=== PATIENT | female | born 1975 | race Caucasian/White ===

== ENCOUNTER 2025-02-12 09:33 | Emergency (ER) | payer BC, MEDICAID ==
[~2025-02-12] VITALS: Ht 157.5 cm; Wt 86.0 kg
[2025-02-12 09:52] VITALS: BP 150/88; PULSE 86; RESP 16; TEMP 97.5; O2SAT 99
[2025-02-12] MEDS ORDERED: CIPR10DR RIGHT EAR (09:57)
--- NOTE | 2025-02-12 10:00 | Physician Documentation ---
History of Present Illness ~ Chief Complaint: Ear Pain Stated Complaint: EAR INFECTION Time Seen by MD: 09:54 OK to notify your PCP?: Yes Primary Medical Doctor: renetta Source: patient Mode of Arrival: POV Exam Limitations: no limitations HPI RIGHT EAR PAIN AND WHITE/YELLOW DISCHARGE FOR THE PAST 10 DAYS. SHE HAS NOT TRIED ANYTHING AT HOME YET. DENIES ANY SORE THROAT, RUNNY NOSE OR FEVERS. NO RECENT SWIMMING. Medication Reconciliation Allergies: Coded Allergies: No Known Allergies (Unverified , 02/12/25) Past Medical History Past Surgical History: cholecystectomy, hysterectomy Other Past Family History: NONE Alcohol Use: Occasionally Drug Use: none Review of Systems All Other Systems at this time: Reviewed and Negative Physical Exam Vital Signs: RN Vital Signs have been reviewed: Yes, Temperature: 97.5, Source: Temporal, Heart Rate: 86, Respiratory Rate: 16, BP: 150/88, Pulse Oximetry: 99, Weight: 86.000 Oxygen Flow Rate: 0 Pulse Oximetry Reflects: adequate oxygenation Physical Exam General: Alert, no distress. HEENT: No injection, moist mucous membranes. Left ear normal. Right ear external canal has copious white/yellow discharge, unable to see tympanic membrane. Neck: Full range of motion. Respiratory: No respiratory distress, equal chest rise and fall. Chest: No accessory muscle use. Extremities: Normal range of motion, no deformity. Neurologic: Oriented x4. Psychiatric: Normal mood and affect. Skin: Normal color, warm and dry. Progress Results/Orders Results/Orders Vital Signs 02/12/25 09:52 Temp 97.5 Pulse 86 Resp 16 B/P (MAP) 150/88 Pulse Ox 99 O2 Flow Rate 0 Medical Decision Making Additional information obtaine: old records Findings HAS COPIOUS AMOUNTS OF WHITE YELLOW DISCHARGE IN RIGHT EXTERNAL EAR CANAL. IT IS DIFFICULT TO FULLY EXAMINE THE TYMPANIC MEMBRANE ON THIS SIDE. I HAVE GIVEN HER CIPROFLOXACIN HC DROPS TO PLACE IN THIS EAR, SENT TO THE PHARMACY. Ear Diff. Dx: Considerations: Include: Otitis media, Perforation, Tympanic Membrane Injury Eye Diff. Dx: Considerations: Include: Other Nose Diff. Dx: Considerations: Include: Other Tooth Diff. Dx: Considerations: Include: Other Throat Diff Dx: Considerations: Include: Other Departure Disposition: 01 HOME / SELF CARE / HOMELESS Impression: Primary Impression: Otitis externa Condition: Stable Discharge Instructions: Otitis Externa, [id number] Additional Instructions: You can use Tylenol and/or ibuprofen for pain relief at home. Return back here for any new or worsening symptoms. Follow up with her primary care provider in the next week. Referrals: NO PRIMARY CARE PROVIDER (PCP) Prescriptions Ciprofloxacin Hcl/Hc Otic Susp* (Cipro Hc Otic Susp*) 10 Ml Bottle 3 DROP RIGHT EAR Q12H for 7 Days, #10 ML Prov: ANTONIETTA DASH 02/12/25 Education Educated: Patient Educated regarding: diagnosis, treatment, prognosis, need for follow up Additional Comment Medical Screen Exam This patient recieved a medical screening examination. After reviewing the individual's medical complaints with presenting symptoms and performing an appropriate physical examination, it was determined that no immediate life- threatening emergency medical condition is present. This individual is also not a women having contractions. Signature Scribe Signature: . Attestation: Scribed for Emergency,Department by Antonietta Weir NP . 02/12/25 09:55 Parts of this note were created using [employer] voice recognition software program. While efforts were made to correct any mistakes made by this voice recognition software program, nonsensical phrases may remain in this note. In addition, there may be errors and syntax, grammar, content and spelling. ANTONIETTA DASHP Feb 12, 2025 10:00
== END 2025-02-12 10:18 | disposition home or self-care (01) ==
LOC: ER 09:34
DX: H60.91 Unspecified otitis externa, right ear (principal); Z90.49 Acquired absence of other specified parts of digestive tract; Z90.710 Acquired absence of both cervix and uterus
CPT/HCPCS: 99283